=== PATIENT | female | born 1950 | race Caucasian/White ===

== ENCOUNTER → 2018-06-04 12:27 | Outpatient (CLI) | payer MEDICARE, OTHER, SELFPAY ==
[2018-06-04 13:41] LABS: Cancer Antigen 125 < 6 U/mL (0-35)
== END ==
PROVIDERS: Visit Provider Obstetrics & Gynecology
DX: N83.9 Noninflammatory disorder of ovary, fallopian tube and broad ligament, unspecified (principal)
CPT/HCPCS: 36415; 86304

== ENCOUNTER 2018-07-21 08:34 | Day surgery (SDC) | payer MEDICARE, OTHER, SELFPAY ==
[2018-07-01 12:26] VITALS: BMI 21.7
[2018-07-21] VITALS (9 sets, daily range): BP systolic 104–125; BP diastolic 67–78; PULSE 70–101; RESP 10–18; TEMP 36.1–37.3; O2SAT 92–100; BMI 21.5
--- NOTE | 2018-07-21 | PATH_ITS ---
[facility] Accession Number: [id number] . 01 Material submitted: . OVARY/FALLOPIAN TUBE - BILATERAL OVARIES AND BILATERAL TUBES . 02 Diagnosis: Bilateral Ovaries and Fallopian Tubes, Bilateral Salpingectomy and Oophorectomy: Bilateral ovaries with no diagnostic abnormality. Bilateral fimbriated fallopian tubes with simple benign paratubal cysts. No evidence of neoplasm. MRV/07/23/2018 . 02 Electronically signed: . Deniz Vines MD, PhD, Pathologist NPI- [id number] . 01 Gross description: . Received in formalin, labeled JOSETTE ovaries + JOSETTE tubes, are two ovaries (ovary #1-1.8 x 1.5 x 0.6 cm; ovary #2-5.0 x 2.8 x 2.5 cm) with attached fimbriated fallopian tubes (tube #1: length-4.5 cm, diameter-0.4 cm; tube #2: length-6.2 cm, diameter-0.3 cm). The ovaries have cummings-yellow shiny bosselated and focally flat serosa. Ovary #1 has cummings-white solid firm parenchyma. Ovary #2 has cummings-white solid cystic (3.3 x 2.5 x 1.8 cm) parenchyma containing clear colorless fluid and corpus albicans. The cavity lining is smooth and flat with no excrescences identified. The fallopian tubes have cummings-pink smooth shiny serosa with multiple paratubal cysts (0.1 cm-1.4 cm) containing clear colorless fluid. The lumens are cummings and unremarkable. Section code: (A1) ovary #1, cash applications representative serial sections; (A2) ovary #2, cash applications representative sections; (A3) fallopian tube #1, cash applications representative serial sections; (A4) fimbria #1, bivalved, entirely submitted; (A5) fallopian tube #2, cash applications representative serial sections; (A6) fimbria #2, bivalved, entirely submitted. ([id number]) /MRV . 02 Pathologist provided ICD-10: N83.8 . 02 CPT . 894104 Performed at: 01 [facility] [address] [place] [address], [place], [place] [id number] MD Grzegorz Howard MD Phone: [phone] Performed at: 02 [facility] [address] [address] [place], [place] [id number] MD Lakshmi Ferrer MD Phone: [phone]
[2018-07-21] MEDS: LACTATED RINGERS 1,000 ML 100 ML IV (09:40)
--- NOTE | 2018-07-21 11:28 | PM.PREOP ---
Pre-operative Note Interval Note History & Physical reviewed/Exam performed by Physician: Yes Changes to H&P: No
--- NOTE | 2018-07-21 11:28 | PM.HP.1 ---
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 (Acute) History of palpitations (Acute) Hx of migraines (Acute) Impaired vision (Acute) Left inguinal hernia (Acute) Palpitations (Acute) Surgical History (Updated 07/16/17 @ 05:40 by Conversion Provider) History of third molar tooth extraction Status post tonsillectomy and adenoidectomy Social History household members: spouse Smoking Status: Never smoker Family & Social History Social History: household members spouse Tobacco & Substance use: Smoking Status Never smoker Substance Use Type does not use Meds Home Medications Medication Instructions Recorded Confirmed Type diclofenac sodium [Voltaren] 2 g TOPICAL DAILY 07/21/18 07/21/18 History multivitamin 2 tab PO SEEINSTR 07/21/18 07/21/18 History uhhuoeappbco-aauf-iktev acid 1 tab PO SEEINSTR 07/21/18 07/21/18 History [Multi Complete with Iron] zolpidem [Ambien] 07/21/18 History Allergies Allergy/AdvReac Type Severity Reaction Status Date / Time iodine [IODINE] Allergy Severe Welts Verified 07/21/18 09:41 povidone-iodine Allergy Severe Welts Verified 07/21/18 09:41 [From Betadine] silicone Allergy Severe First Verified 07/21/18 09:41 degree mace soap [From Betadine] Allergy Severe Welts Verified 07/21/18 09:41 lidocaine [LIDOCAINE] Allergy Mild Heart Verified 07/21/18 09:41 racing, tunnel vision, shortness of breath aspirin [ASPIRIN] AdvReac Severe Tinnitus Verified 07/21/18 09:41 caffeine AdvReac Severe I get Verified 07/21/18 09:41 really hyper codeine AdvReac Severe Nausea Verified 07/21/18 09:41 epinephrine AdvReac Severe Heart Verified 07/21/18 09:41 [From Xylocaine with racing, Epinephrine] tunnel vision, shortness of breath gluten AdvReac Mild Verified 07/21/18 09:43 msg AdvReac Intermediate Migraines Uncoded 07/21/18 09:42 occlusive dressing AdvReac Mild Itching Uncoded 07/21/18 09:41 Exam Vital Signs (past 8 hours): - 07/21/18 09:46 Temperature 99.2 F Pulse Rate 101 H Respiratory Rate 16 Blood Pressure 121/78 Pulse Oximetry 100 Oxygen Delivery Method Room Air Narrative Exam Narrative: HEENT: [No thyromegaly, no anterior cervical or supraclavicular lymphadenopathy.] Lungs:[Clear to auscultation bilaterally, no wheezes.] Cardiovascular: [Regular rate and rhythm, no murmurs, rubs, or gallops]. Abdomen: [No scars. No hepatosplenomegaly. No masses palpable.] External genitalia: [Normal] Vagina: [Normal] Cervix: [Normal] Bimanual exam: 6 Week size uterus. Mobile. Rectal: [No masses]. Ultrasound: 4 cm right ovarian cyst CA 125: Normal Assessment & Plan Assessment & Plan narrative: Assessment: 67-year-old with a right ovarian cyst Normal CA 125 Plan: Laparoscopic bilateral salpingo-oophorectomy The risks, benefits, and alternatives to the procedure were explained to the patient. The risks including bleeding, infection, injury to the bowel, bladder, or ureters. She understands these risks and agrees to proceed. A full PAR-Q was held and consent form was signed. Time Spent With Patient Time with patient: 15-24 minutes
--- NOTE | 2018-07-21 11:51 | SUR.OPER ---
Lithotomy on padded OR bed, head on pillow, arms secured on padded arm boards at <90 degrees abduction. Legs secured in padded yellow fins stirrups.
[2018-07-21] MEDS: BUPIVACAINE 0.5% W/ EPI (PF) VIAL 30 ML INJ (11:56)
[2018-07-21] MEDS: fentaNYL 100 MCG/2 ML INJ 50 MCG IV ×3 (12:36→13:08)
[2018-07-21] MEDS: ONDANSETRON 4 MG/2 ML INJ IV ×2 (12:45→13:12)
[2018-07-21] MEDS: TRAMADOL 50 MG TABLET PO (13:31)
--- NOTE | 2018-07-21 14:24 | SUR.PHASEII ---
Patient complains of feeling nausea with a pain level of 3/10. Queeze ease given.
--- NOTE | 2018-07-22 10:32 | P.OP_ITS ---
Operative Date/Time/Diagnoses Date of procedure: 07/21/18 Time of procedure: 11:30 Pre-op diagnosis: Right ovarian cyst Post-op diagnosis: same Procedure: Procedures Operation Date: 07/21/18 09:45 Actual Procedures Side Surgeon p Laparoscopic Oophorectomy Salpingoophorectomy Bilateral Jessica Rees MD Indications: 5 cm right tubal cyst Surgeon: Jessica Rees Anesthesia Type: General Operative Notes Findings: Normal uterus Normal left tube and ovary Normal right ovary 5 cm right tubal cyst Liver was small area of fibrosis near the gallbladder Normal appendix Closure Type: primary Specimen(s): left tube & ovary and right tube & ovary Applied: catheter Estimated blood loss (mL): 5 Blood products transfused: none Procedure in detail: After informed consent was obtained, the patient was taken the operating room where she was placed in the dorsal supine position. After adequate general endotracheal anesthesia was achieved, she was placed in the dorsal lithotomy position, and prepped and draped in the usual sterile fashion. A time-out was performed. A bivalve speculum was placed into the vagina. A single-tooth tenaculum was placed on the anterior lip of the cervix. The cervical os was stenotic and a decision was made not to place a Zumi uterine manipulator. The single-tooth tenaculum was removed from the anterior lip of the cervix. The bivalve speculum was removed from the vagina. Attention was then turned to the abdomen where 6 cc of 0.5% Marcaine with epinephrine were injected in the umbilical fold. A 5 mm incision was made. The Veress needle was placed into the peritoneal cavity, and its placement confirmed by aspiration and drop test. The abdominal cavity is insufflated with 2.8 L of CO2. The Veress needle was removed, and a 5 mm trocar was placed without difficulty. Initial inspection of the abdomen and pelvis with the findings noted above. Two other 5 mm incisions were made lateral to the umbilicus, 4 cm, after 6 cc of 0.5% Marcaine with epinephrine were injected. Two 5 mm trocars were placed under direct visualization. The right tube and ovary were grasped with an atraumatic grasper. The infundibulopelvic ligament on the right side was cauterized and cut all the way down to the fundus of the uterus. The utero- ovarian vessels were cauterized and cut. The tube was transected at the cornu of the uterus. The tube and ovary were placed into the right lower quadrant. This was repeated on the patient's left side. The instruments were removed from the abdomen. the CO2 was allowed to escape. The 5 mm trocar was removed from the umbilicus. The incision was extended to 11 mm. An 11 mm trocar was placed. The endobag was placed through the umbilical trocar. The tubes and ovaries were placed into the bag. The bag was removed through the umbilical incision. The pelvis was examined and there was no bleeding noted. The umbilical incision was closed on the fascia with 0 Vicryl. All of the incisions were closed on the skin with 4 0 undyed Vicryl in a subcuticular fashion. Steri-Strips, 2 x 2, and tape was placed over the incisions. The moistened sponge stick was removed from the vagina. Sponge, lap, and instrument counts were correct x2. The patient tolerated the procedure well, and was taken to PACU in stable condition. Complications: none Post-operative Condition: stable Disposition: PACU Plan for aftercare: Home after recovery
== END 2018-07-21 14:54 | disposition home or self-care (01) ==
PROVIDERS: Visit Provider Obstetrics & Gynecology
PROC: 0UT24ZZ Resection of Bilateral Ovaries, Percutaneous Endoscopic Approach (ICD-10-PCS; CPT 58661; principal; 2018-07-21 09:45)
DX: N83.8 Other noninflammatory disorders of ovary, fallopian tube and broad ligament (principal); M79.7 Fibromyalgia; N60.19 Diffuse cystic mastopathy of unspecified breast
CPT/HCPCS: 58661; 88305; J0330; J1100; J2405; J2704; J3010

== ENCOUNTER → 2019-12-21 13:48 | Outpatient (CLI) | payer MEDICARE, OTHER, SELFPAY ==
--- NOTE | 2019-12-21 | DI.RAD.S_ITS ---
PROCEDURE: XR DEXA AXIAL SKELETON INDICATIONS: POST MENOPAUSAL COMPARISON: None. FINDINGS: This blank DEXA report has been sent in error by the PACS system. The correct and complete report will be forthcoming in 1-2 days. Thank you for your patience and understanding. Dictated by: Kevin Theodore M.D. on 12/21/2019 at 15:37 Approved by: Kevin Theodore M.D. on 12/21/2019 at 15:37
== END ==
PROVIDERS: PCP Nurse Practitioner Family; Referring Provider Nurse Practitioner Family; Visit Provider Nurse Practitioner Family
DX: M81.0 Age-related osteoporosis without current pathological fracture (principal); Z78.0 Asymptomatic menopausal state
CPT/HCPCS: 77080

== ENCOUNTER → 2022-07-05 13:18 | Outpatient (CLI) | payer MEDICARE, OTHER, SELFPAY | PROVIDERS: Family Provider Nurse Practitioner Family; PCP Nurse Practitioner Family; Referring Provider Nurse Practitioner Family; Visit Provider Nurse Practitioner Family | DX: R20.0 Anesthesia of skin (principal) | CPT/HCPCS: 95886; 95911 ==

== ENCOUNTER → 2022-08-28 12:07 | Outpatient (CLI) | payer MEDICARE, OTHER, SELFPAY ==
--- NOTE | 2022-08-28 12:46 | DI.DEXA.S_ITS ---
Bone Density Report Name: FRANCISCA RODRIGUEZ Age: 71 Sex: Female Ethnicity: White Date of : 1950 Indication: postmenopausal osteoporosis; Referring Provider: BRYN LOMBARDO Study: Bone densitometry was performed. Exam Date: August 28, 2022 Accession number: [id number] Bone Density: Region BMD T-score Z-score Classification AP Spine(L1-L4) 0.708 -3.1 -0.8 Osteoporosis Femoral Neck (Left) 0.626 -2.0 0.0 Osteopenia Total Hip (Left) 0.693 -2.0 -0.3 Osteopenia Femoral Neck (Right) 0.497 -3.2 -1.2 Osteoporosis Total Hip (Right) 0.660 -2.3 -0.6 Osteopenia Total Hip Mean 0.676 -2.2 -0.5 Osteopenia World Health Organization criteria for BMD impression classify patients as: Normal (T-score at or above -1.0), Osteopenia (T-score between -1.0 and -2.5), or Osteoporosis (T-score at or below -2.5). 10-year Fracture Risk: FRAX not reported because: Some T-score for Spine Total or Hip Total or Femoral Neck at or below -2.5 Previous Exams: -- Region Exam Age BMD T-score BMD Change BMD Change Date g/cm2 vs Baseline vs Previous -- AP Spine (L1-L4) 08/28/2022 71 0.708 -3.1 -0.097 (-12.1%)# -0.097 (-12.1%)# 12/21/2019 69 0.805 -2.2 Total Hip(Left) 08/28/2022 71 0.693 -2.0 0.051 (7.9%)# 0.051 (7.9%)# 12/21/2019 69 0.642 -2.5 Total Hip(Right) 08/28/2022 71 0.660 -2.3 0.009 (1.5%)# 0.009 (1.5%)# 12/21/2019 69 0.650 -2.4 -- *Denotes significance at 95% confidence level, LSC for AP Spine = 0.022 g/cm2, LSC for Total Hip = 0.027 g/cm2 # Denotes dissimilar scan types or analysis methods Impression: The patient has osteoporosis, based on the Right Femoral Neck T-score. No significant bone loss was observed. Discussion: INCREASED RISK OF FRACTURE. BONE DENSITY IS UNDESIRABLY LOW AT ONE OR MORE SKELETAL SITES, CONSISTENT WITH POSTMENOPAUSAL OSTEOPOROSIS. This patient's lowest T-score meets the World Health Organization's (WHO) criteria for osteoporosis at one or more sites (T-score -2.5 or below). In untreated patients, the risk of osteoporotic fracture increases approximately two-fold for each 1.0 SD decrease in T-score. Low bone density is not the only risk factor for fracture; also consider factors such as patient's age, frailty or poor health, risk of falling, risk of injury, previous osteoporotic fracture, family history of osteoporosis, cigarette smoking, low body weight, etc. Not everyone with low bone mineral density has osteoporosis; osteomalacia and other metabolic bone disorders should also be considered. Patients who have osteoporosis should be evaluated for specific diseases and conditions (secondary causes) that may cause or contribute to bone loss. The [place] [employer] Endocrinologists (AACE) and National Osteoporosis Foundation (NOF) recommend pharmacologic intervention for all postmenopausal women whose T-score is in this range. The patient should follow a healthful lifestyle (good nutrition with adequate calcium and vitamin D, and appropriate weight-bearing exercise). Follow-Up: Consider a repeat BMD and Vertebral Fracture Assessment (VFA) exam in 2 years or sooner if medically necessary, to reassess this patient's status. Reported by: CONRAD LONDON M.D. on 08/28/2022 1:16:00 PM.
== END ==
PROVIDERS: Family Provider Nurse Practitioner Family; PCP Nurse Practitioner Family; Referring Provider Nurse Practitioner Family; Visit Provider Nurse Practitioner Family
DX: M81.0 Age-related osteoporosis without current pathological fracture (principal)
CPT/HCPCS: 77080

== ENCOUNTER → 2023-10-14 18:47 | Outpatient (CLI) | payer MEDICARE, OTHER, SELFPAY ==
--- NOTE | 2023-10-14 18:49 | DI.MRI.S_ITS ---
PROCEDURE: MR KNEE RT WO CON INDICATIONS: PAIN IN RIGHT KNEE TECHNIQUE: Noncontrast sagittal PD fast spin echo and T2 fast spin echo with fat saturation, sagittal 3-D FLASH with fat saturation; coronal T1 spin echo and PD fast spin echo with fat saturation, and axial PD fast spin echo with fat saturation through the knee. COMPARISON: None. FINDINGS: Image quality: Excellent. Menisci: Oblique tear involving posterior horn of medial meniscus extending to inferior articulating surface is seen. The lateral meniscus is intact. The meniscal root ligaments appear intact. Cruciate ligaments: Degenerative changes are noted in anterior cruciate ligament. No ACL rupture. The PCL is intact. Medial structures: The medial collateral ligament appears mildly thickened with surrounding soft tissue edema. Visualized portions of the pes anserinus tendons appear normal. No abnormal bursal fluid. Lateral structures: The lateral collateral ligament, long and short heads of the biceps femoris tendon appear intact. The popliteus tendon appears normal. Iliotibial band appears normal. Anterior structures: The quadriceps and patellar tendons appear intact. Low to moderate grade partial-thickness tear involving medial patellofemoral ligament at its patellar insertion is seen. There is slight lateral patellar subluxation. Chondromalacia involving lateral femoral trochlear cartilage is noted. Bones and cartilage: Moderate tricompartmental osteoarthritis and chondromalacia is seen most notably involving patellofemoral compartment with significant joint space narrowing, subchondral sclerosis and small osteochondral injuries involving posterior aspect of patella with mild surrounding edema. Small osteochondral injury is also noted involving anterior and lateral periphery of lateral femoral condyle. No fracture or dislocation. Joint space: There is small to moderate knee joint fluid. No Rodríguez's cyst. Normal appearing synovial plicae are incidentally noted. IMPRESSION: 1. Moderate tricompartmental osteoarthritis and chondromalacia most notably involving patellofemoral compartment. No fracture or dislocation. Small to moderate joint effusion, no loose bodies. 2. Low to moderate grade partial-thickness tear involving medial patellofemoral ligament at its femoral insertion with slight lateral subluxation of patella. Chondromalacia noted in lateral femoral trochlear cartilage. 3. Subtle oblique tear involving posterior horn of medial meniscus extending to inferior articulating surface. No lateral meniscal tear. 4. Degenerative changes in in anterior cruciate ligament. No ACL rupture. The PCL is intact. 5. Mild MCL sprain/partial-thickness tear. Dictated by: Kevin Theodore M.D. on 10/15/2023 at 11:11 Approved by: Kevin Theodore M.D. on 10/15/2023 at 11:28
== END ==
PROVIDERS: Family Provider Nurse Practitioner Family; Referring Provider Nurse Practitioner Family; Visit Provider Nurse Practitioner Family
DX: S83.241A Other tear of medial meniscus, current injury, right knee, initial encounter (principal); S76.111A Strain of right quadriceps muscle, fascia and tendon, initial encounter; S83.411A Sprain of medial collateral ligament of right knee, initial encounter; M17.11 Unilateral primary osteoarthritis, right knee; M22.41 Chondromalacia patellae, right knee; M25.461 Effusion, right knee; M25.561 Pain in right knee
CPT/HCPCS: 73721

== ENCOUNTER → 2024-07-22 08:43 | Outpatient (CLI) | payer MEDICARE, OTHER, SELFPAY ==
--- NOTE | 2024-07-22 08:45 | DI.US.S_ITS ---
PROCEDURE: US ABDOMEN LIMITED INDICATIONS: ABN HEPATIC IMAGING FINDINGS TECHNIQUE: Real-time scanning was performed of the abdominal and retroperitoneal organs, with image documentation. COMPARISON: None. FINDINGS: Septated lobulated nonspecific cystic lesion left lobe of the liver anteriorly , segment 2-3 measuring approximately 2.2 x 1.7 x 1.4 cm. If indicated, CT or MRI with contrast may be useful for further evaluation. Mildly increased hepatic echogenicity commonly hepatic steatosis or intrinsic hepatic disease. Liver measures approximately 12 cm in CC dimension of the right lobe within normal limits in size. Gallbladder is nondistended. Echogenic nonshadowing suspected gallbladder polyp 4 mm. No ultrasound evidence of gallbladder wall thickening or pericholecystic fluid. Common bile duct measures 3 mm within normal limits. Pancreas is not well visualized due to overlying bowel gas. IMPRESSION: Left lobe of the liver cystic lesion as discussed above.Mild increased hepatic echogenicity as discussed above. Dictated by: Eze Balbuena M.D. on 07/22/2024 at 10:34 Approved by: Eze Balbuena M.D. on 07/22/2024 at 10:43
--- NOTE | 2024-07-22 08:51 | DI.MRI.S_ITS ---
PROCEDURE: MR HIP LT WO CON INDICATIONS: ABN HEPATIC IMAGING FINDINGS TECHNIQUE: Noncontrast coronal T1 spin echo and STIR through the bony pelvis. Coronal and axial T2 fast spin echo with fat saturation, sagittal T1 spin echo, and oblique axial T2 fast spin echo with fat saturation through the hip. COMPARISON: [facility], CR, XR PELVIS WITH LATERAL HIP LEFT, 01/16/2024, 13:21. FINDINGS: Image quality: Excellent. Bones and joints: There is mild subchondral degenerative marrow edema and cyst formation within the left acetabulum. Moderate left hip periarticular osteophyte formation is present. No intraosseous lesions or fractures. No avascular necrosis of the femoral heads. The visualized lower lumbar spine appears normally aligned. Tendons and ligaments: The gluteus medius and minimus tendons appear intact, without associated muscle atrophy. Mild T2 signal elevation adjacent to the femoral insertion sites of the left gluteus medius and minimus tendons. The nearby proximal iliotibial band also appears intact. The iliopsoas tendon appears intact, without adjacent bursal fluid collections or evidence for impingement syndrome. The origin of the hamstring tendon is intact at the ischial tuberosity, as well as the associated sacrotuberous ligament. Mild T2 signal elevation within and adjacent to the left hamstring tendon origin at the ischial. The straight and reflected heads of the rectus femoris muscle origin appear intact, as well as the conjoint tendon. The ligamentum teres appears intact where visualized. Labrum and cartilage: Diffuse degenerative tearing of the left hip labrum. Severe left hip articular cartilage loss. The alpha angle of the femur is within normal limits at less than 55 degrees. Soft tissues: Visualized muscles demonstrate normal bulk and internal signal. Quadratus femoris muscle demonstrates no internal edema to suggest ischiofemoral impingement. The proximal sciatic neurovascular bundle appears normal adjacent to the hamstring tendons. No free pelvic fluid. Bladder wall thickness is normal. Genitourinary structures and bowel loops appear normal where visualized. IMPRESSION: 1. Left hip osteoarthritis associated with articular cartilage loss and labral tearing. 2. Mild insertional tendinitis of the left gluteus medius and minimus tendons. 3. Left hamstring tendinopathy. Dictated by: Rickey Valljeo M.D. on 07/22/2024 at 10:18 Approved by: Rickey Vallejo M.D. on 07/22/2024 at 10:20
== END ==
LOC: MRI 08:43
PROVIDERS: Family Provider Nurse Practitioner Family
DX: M16.12 Unilateral primary osteoarthritis, left hip (principal); M75.22 Bicipital tendinitis, left shoulder; M25.552 Pain in left hip; E67.3 Hypervitaminosis D
CPT/HCPCS: 73721; 76705